=== PATIENT | female | born 1950 | race Caucasian/White ===

== ENCOUNTER 2018-05-13 22:38 | Emergency (ER) | payer MEDICARE ==
[2018-05-13 22:50] VITALS: BP 171/90
[2018-05-14] MEDS ORDERED: PROVENTIL IH ONE (00:02)
[2018-05-14] MEDS ORDERED: DELTASONE PO STA (00:02)
--- NOTE | 2018-05-14 00:21 | XRay Report ---
FINAL REPORT PROCEDURE: XR CHEST ROUTINE 2V TECHNIQUE: PA and lateral chest radiographs were obtained. CPT 54389 HISTORY: cough COMPARISON: No prior studies are available for comparison. FINDINGS: Heart: Normal. Mediastinum/Vessels: Normal. Lungs/Pleural space: Normal. Bony thorax: No acute osseous abnormality. Other: IMPRESSION: Normal examination.
--- NOTE | 2018-05-14 01:33 | Emergency Department Report ---
ED General Adult HPI - General Chief complaint: Chest Pain Stated complaint: CHEST PAIN COUGH Time Seen by Provider: 05/13/18 23:35 Source: patient, family Mode of arrival: Ambulatory Limitations: Language Barrier - History of Present Illness Initial comments: 67-year-old male that was followed complaining of cough, congestion with occasional coryza with mucus production. No wheezing. No fever, chills, sweats, palpitations, reports no presyncope or tinnitus. No hemoptysis, no hematemesis, hematochezia -: Gradual, days(s) (4) Location: chest Radiation: non-radiation Quality: aching Consistency: constant Improves with: none Worsens with: none Associated Symptoms: cough (with mucus production). denies: headaches, loss of appetite, shortness of breath, syncope, weakness Treatments Prior to Arrival: none - Related Data Previous Rx's Medication Instructions Recorded Last Taken Type Ondansetron [Zofran Odt] 4 mg PO Q8H PRN #10 tab.rapdis 07/11/15 Unknown Rx RX: ALBUTEROL Inhaler (OR & NICU) 2 puff IH QID PRN #1 inhalation 07/11/15 Unknown Rx [ProAir HFA Inhaler] RX: Azithromycin [Zithromax Z-BELÉN] 250 mg PO DAILY #6 tab 07/11/15 Unknown Rx RX: predniSONE [Deltasone] 20 mg PO BID #6 tab 07/11/15 Unknown Rx Benzonatate [Tessalon Perles] 200 mg PO Q8HR #30 capsule 05/14/18 Unknown Rx RX: ALBUTEROL Inhaler (OR & NICU) 1 puff IH Q4-6H PRN #1 inha 05/14/18 Unknown Rx [ProAir HFA Inhaler] RX: predniSONE [Deltasone] 20 mg PO QDAY #5 tab 05/14/18 Unknown Rx Allergies Allergy/AdvReac Type Severity Reaction Status Date / Time No Known Allergies Allergy Verified 07/10/15 22:23 ED Review of Systems ROS: Stated complaint: CHEST PAIN COUGH Other details as noted in HPI Constitutional: denies: chills, fever Eyes: denies: eye pain, eye discharge, vision change ENT: denies: ear pain, throat pain Respiratory: cough. denies: shortness of breath, wheezing Cardiovascular: denies: chest pain, palpitations Endocrine: no symptoms reported Gastrointestinal: denies: abdominal pain, nausea, diarrhea Genitourinary: denies: urgency, dysuria, discharge Musculoskeletal: denies: back pain, joint swelling, arthralgia Skin: denies: rash, lesions Neurological: denies: headache, weakness, paresthesias Psychiatric: denies: anxiety, depression Hematological/Lymphatic: denies: easy bleeding, easy bruising ED Past Medical Hx - Past Medical History Hx Heart Attack/AMI: No - Surgical History Past Surgical History?: Yes Additional Surgical History: hyster. x1 - Social History Smoking Status: Never Smoker Substance Use Type: None - Medications Home Medications: Home Medications Medication Instructions Recorded Confirmed Last Taken Type Ondansetron [Zofran Odt] 4 mg PO Q8H PRN #10 tab.rapdis 07/11/15 Unknown Rx RX: ALBUTEROL Inhaler (OR & NICU) 2 puff IH QID PRN #1 inhalation 07/11/15 Unknown Rx [ProAir HFA Inhaler] RX: Azithromycin [Zithromax Z-BELÉN] 250 mg PO DAILY #6 tab 07/11/15 Unknown Rx RX: predniSONE [Deltasone] 20 mg PO BID #6 tab 07/11/15 Unknown Rx Benzonatate [Tessalon Perles] 200 mg PO Q8HR #30 capsule 05/14/18 Unknown Rx RX: ALBUTEROL Inhaler (OR & NICU) 1 puff IH Q4-6H PRN #1 inha 05/14/18 Unknown Rx [ProAir HFA Inhaler] RX: predniSONE [Deltasone] 20 mg PO QDAY #5 tab 05/14/18 Unknown Rx ED Physical Exam - General Limitations: Language Barrier General appearance: alert, in no apparent distress - Head Head exam: Present: atraumatic, normocephalic - Eye Eye exam: Present: normal appearance - ENT ENT exam: Present: mucous membranes moist - Neck Neck exam: Present: normal inspection - Respiratory Respiratory exam: Present: normal lung sounds bilaterally, rhonchi. Absent: respiratory distress - Cardiovascular Cardiovascular Exam: Present: regular rate, normal rhythm. Absent: systolic murmur, diastolic murmur, rubs, gallop - GI/Abdominal GI/Abdominal exam: Present: soft, normal bowel sounds - Extremities Exam Extremities exam: Present: normal inspection - Back Exam Back exam: Present: normal inspection - Neurological Exam Neurological exam: Present: alert, oriented X3 - Psychiatric Psychiatric exam: Present: normal affect, normal mood - Skin Skin exam: Present: warm, dry, intact, normal color. Absent: rash ED Course Vital Signs 05/13/18 05/14/18 22:42 01:58 Temperature 97.7 F 97.7 F Pulse Rate 78 78 Respiratory 16 16 Rate Blood Pressure 171/90 O2 Sat by Pulse 96 96 Oximetry - Reevaluation(s) Reevaluation #1: 05/14/18 01:30 Feels much better after the albuterol therapy. Critical care attestation.: If time is entered above; I have spent that time in minutes in the direct care of this critically ill patient, excluding procedure time. ED Disposition Clinical Impression: Cough, Bronchitis Disposition: - TO HOME OR SELFCARE Is pt being admited?: No Does the pt Need Aspirin: No Condition: Stable Instructions: Acute Bronchitis (ED), Chronic Bronchitis (ED) Prescriptions: RX: ALBUTEROL Inhaler (OR & NICU) [ProAir HFA Inhaler] 1 puff IH Q4-6H PRN #1 inha PRN Reason: Cough Benzonatate [Tessalon Perles] 200 mg PO Q8HR #30 capsule RX: predniSONE [Deltasone] 20 mg PO QDAY #5 tab Referrals: ALYSE MACARIO MD [Primary Care Provider] - 3-5 Days Forms: Accompanied Note, Work/School Release Form(ED)
== END 2018-05-14 01:58 | disposition home or self-care (01) ==
LOC: ED 22:38
DX: J40 Bronchitis, not specified as acute or chronic (principal)
CPT/HCPCS: 71046; 93005; 93010; 94640; 99283; J7512